=== PATIENT | female | born 1955 | race African-American/Black ===

== ENCOUNTER 2022-01-13 09:27 | Outpatient (CLI) | payer OTHER, SELFPAY ==
--- NOTE | ~2022-01-13 | DEXA_ITS ---
Bone Density Report Name: YURI SMILEY Age: 66 Sex: Female Ethnicity: Black Date of : 1955 Indication: postmenopausal; screening for osteoporosis; height loss; Referring Provider: JOCELYNEEULALIO Study: Bone densitometry was performed. Exam Date: January 13, 2022 Accession number: [id number] Bone Density: Region BMD T-score Z-score Classification AP Spine (L1, L2, L3) 1.094 0.7 1.6 Normal Femoral Neck (Left) 0.831 -0.2 0.4 Normal Total Hip (Left) 1.062 1.0 1.1 Normal Femoral Neck (Right) 0.845 0.0 0.5 Normal Total Hip (Right) 1.021 0.6 0.9 Normal Total Hip Mean 1.042 0.8 1.0 Normal World Health Organization criteria for BMD impression classify patients as: Normal (T-score at or above -1.0), Osteopenia (T-score between -1.0 and -2.5), or Osteoporosis (T-score at or below -2.5). 10-year Fracture Risk: FRAX not reported because: All T-scores for Spine Total, Hip Total, Femoral Neck at or above -1.0 Clinical Information Provided by Patient: Patient maximum height was 61.75 Menopause Age: 53 No regular weight bearing exercise Drinks caffeinated beverages Onset of menses at age 13 Number of children 1 Impression: The patient has normal bone mass. Discussion: BONE DENSITY IS ABOVE THE MINIMUM DESIRABLE LEVEL AT ALL SKELETAL SITES TESTED. This patient?s bone mineral density is above the minimum desirable level (T-score -1.0 or better) at all sites measured. The patient should follow a healthful lifestyle (good nutrition with adequate calcium and vitamin D, and appropriate weight-bearing exercise). Follow-Up: Consider repeating this study in 5 years or sooner if there is some new clinical indication. Reported by: GABRIELA on 01/13/2022 10:09:00 AM. Reviewed, dictated and finalized at location AAlexey PINEDA
== END 2022-01-13 09:28 ==
LOC: MICIMG 09:30
PROVIDERS: PCP Family Medicine; Visit Provider Family Medicine
DX: Z78.0 Asymptomatic menopausal state (principal)
CPT/HCPCS: 77080

== ENCOUNTER → 2022-03-13 10:32 | Outpatient (CLI) | payer OTHER, SELFPAY ==
--- NOTE | ~2022-03-13 | MM_ITS ---
EXAMINATION: MM screening harvey BI w kofi HISTORY: Screening TECHNIQUE: Craniocaudal and mediolateral oblique 3-D tomosynthesis images were obtained and synthetic 2-D images were generated. CAD analysis was submitted and interpreted. COMPARISON: 11/18/2018 BREAST PARENCHYMAL COMPOSITION: There are scattered areas of fibroglandular density. FINDINGS: There is no evidence of suspicious mass, calcification, or architectural distortion to sugg est malignancy in either breast. There has been no suspicious interval change. IMPRESSION: 1. No mammographic evidence of malignancy. 2. Recommend routine screening mammography in one year. BI-RADS Category 1: Negative Reviewed, dictated and finalized at location A. O CONSULTANT
== END ==
PROVIDERS: PCP Family Medicine; Visit Provider Family Medicine
DX: Z12.31 Encounter for screening mammogram for malignant neoplasm of breast (principal)
CPT/HCPCS: 77063; 77067

== ENCOUNTER 2022-03-30 07:36 | Emergency (ER) | payer OTHER, SELFPAY ==
--- NOTE | ~2022-03-30 | CT_ITS ---
Non-contrast Head CT History: Leg weakness Technique: Axial non-contrast imaging of the brain was performed. Dose reduction technique was used on this scan by utilizing automated exposure control and iterative reconstruction technique. The dose -length product (DLP) was 605.33 mGy-cm. Findings: There is an 8 mm ovoid hyperdensity at the anterior right bruno (axial image 17). The ventri cles and subarachnoid spaces are normal in size. The calvarium appears normal. The visualized paran edinson sinuses and mastoid air cells are clear. Impression: 8 mm ovoid hyperdensity at the anterior right bruno. This could reflect focal hemorrhage/hemorrhagic i nfarct, or possibly aneurysm adjacent to the bruno. Pre and postcontrast MRI recommended for further e valuation. Findings reported to Dr. Angel at the time of this reading. Reviewed, dictated and finalized at [facility]. IAC CATH LAB MANAGER Impression: 8 mm ovoid hyperdensity at the anterior right bruno. This could reflect focal he morrhage/hemorrhagic infarct, or possibly aneurysm adjacent to the bruno. Pre an d postcontrast MRI recommended for further evaluation. Findings reported to Dr. Angel at the time of this reading.
--- NOTE | ~2022-03-30 | XR_ITS ---
EXAMINATION: XR chest 2V DATE: 03/30/2022 07:58 INDICATION: Left-sided weakness TECHNIQUE: AP and lateral views of the chest are obtained. COMPARISON: 06/01/2010 FINDINGS: The lungs are free of acute opacities. No pleural effusion or pneumothorax. The cardiomedia stinal silhouette is normal. There is moderate thoracic spondylosis. IMPRESSION: 1. No acute cardiopulmonary abnormality. Reviewed, dictated and finalized at location A. SHOVEL OPERATOR
--- NOTE | 2022-03-30 07:43 | ECG_ITS ---
Measurements Intervals [place] Rate: 71 P: 53 VA: 151 QRS: -10 QRSD: 82 T: 21 QT: 346 QTc: 376 Interpretive Statements SINUS RHYTHM POOR R WAVE PROGRESSION, ANTERIOR LEADS BORDERLINE T WAVE ABNORMALITY- ANTERIOR LEADS BASELINE ARTIFACT- I, II, III, AVR, AVL, AVF BORDERLINE ECG NO PREVIOUS ECG AVAILABLE FOR COMPARISON Electronically Signed On 03-30-2022 12:39:20 FEATHER TRIMMER by Cody Stroud D.O.
[2022-03-30 07:45] VITALS: BP 159/80; PULSE 73; RESP 16; TEMP 36.4; O2SAT 98
--- NOTE | 2022-03-30 08:02 | ED.WEAKNESS ---
HPI - Weakness General Chief complaint: Weakness Stated complaint: weakness Time Seen by Provider: 03/30/22 08:01 Source: patient, EMS and RN notes reviewed Mode of arrival: EMS Limitations: no limitations History of Present Illness HPI Narrative: 66 years old -[place] female lives alone came by ambulance from home complaining of nausea, dizziness and weakness of the left upper and lower extremity, mainly lower extremity. Noticed at 6 PM last night. She denies any fever, chills, numbness, tingling, slurred speech, vision change or similar symptoms. Patient did not take her medication this morning, did not eat her breakfast, does not take antiplatelet or anticoagulant medication. History of diabetes, hypertension, hyperlipidemia, does not smoke or drink or uses drugs. Patient is full code Related Data Allergies Allergy/AdvReac Type Severity Reaction Status Date / Time No Known Allergies Allergy Mild Verified 10/24/09 13:14 Review of Systems Review of Systems: All systems reviewed & are unremarkable except as noted in HPI and below Exam Narrative: General appearance: Well-developed, well-nourished Skin: Normal color Head: Normocephalic, nontraumatic Eyes: Clear conjunctiva ENT: Oropharynx normal, ears normal, nose normal Neck: Supple, nontender Chest and respiratory: Airway patent, no respiratory distress, no accessory muscle use Heart: Regular rate/rhythm Abdomen: Soft, nontender, no organomegaly, quiet bowel sounds Vascular: Normal peripheral pulses, normal capillary refill. Musculoskeletal: Decreased range of motion of the left upper extremity and left lower extremity because of weakness Neurologic: Alert and oriented ?3, weakness left upper and left lower extremity Course Course Emergency Course: Acute CVA is my concern Consultations Consultation #1: Dr. Bradley, stroke team, [facility] Date: 03/30/22 Time: 09:04 Consultation #2: Dr. Ortega, ED, [facility] Date: 03/30/22 Time: 09:05 Vital Signs Vital signs: Vital Signs Temperature 36.4 C 03/30/22 07:45 Pulse Rate 73 03/30/22 07:45 Respiratory Rate 16 03/30/22 07:45 Blood Pressure 159/80 H 03/30/22 07:45 Pulse Oximetry 98 03/30/22 07:45 Temperature 36.4 C 03/30/22 07:45 Pulse Rate 78 01/05/23 08:19 Respiratory Rate 16 03/30/22 07:45 Blood Pressure 159/80 H 03/30/22 07:45 Pulse Oximetry 98 03/30/22 07:45 MDM - Weakness Differential Diagnosis Differential diagnosis: Likely hypoglycemia, hypothyroidism, dehydration and other (CVA) Lab Data 03/30/22 08:18 03/30/22 08:18 Labs: Lab Results 03/30/22 03/30/22 03/30/22 Range/Units 08:15 08:18 08:18 WBC 5.6 (4.5-10.0) K/mm3 RBC 5.17 (4.2-5.4) M/mm3 Hgb 14.0 (12.0-15.0) g/dL Hct 43.2 (37.0-47.0) % MCV 83.6 (80-100) fl MCH 27.1 (26-34) pg MCHC 32.4 (32-36) g/dl RDW 14.9 H (11.5-14.5) % Plt Count 218 (150-375) k/mm3 MPV 11.4 H (7.4-10.4) fl Immature Gran % (Auto) 0.4 (0-0.5) % Neut % (Auto) 54.1 (45.5-73.1) % Lymph % (Auto) 34.4 (18.3-44.2) % [place] % (Auto) 9.8 H (2.6-8.5) % Eos % (Auto) 0.9 (0-4.4) % Baso % (Auto) 0.4 (0.2-1.2) % Lymph # (Auto) 1.94 (0.9-3.2) K/mm3 [place] # (Auto) 0.6 (0.1-0.6) K/mm3 Eos # (Auto) 0.1 (0-0.3) K/mm3 Baso # (Auto) 0.0 (0.0-0.1) K/mm3 Abs Immat Gran (auto) 0.02 (0.00-0.031) K/mm3 Absolute Neuts (auto) 3.1 (1.3-6.7) K/mm3 Absolute Nucleated RBC 0.0 (0.0-0.012) K/mm3 Nucleated RBC % 0.0 (0.0-0.2) % PT (11.1-14.7) Seconds INR APTT (22.3-36.8) SECONDS Sodium Pending Po
[2022-03-30 08:19] VITALS: PULSE 78
[2022-03-30 08:23] LABS: Basophils Percent Auto 0.4 % (0.2-1.2); Eosinophils Absolute Auto 0.1 K/mm3 (0-0.3); Eosinophils Percent Auto 0.9 % (0-4.4); Hematocrit 43.2 % (37.0-47.0); Immature Granulocyte Absolute 0.02 K/mm3 (0.00-0.031); Immature Granulocyte Percent A 0.4 % (0-0.5); Lymphocytes Absolute Auto 1.94 K/mm3 (0.9-3.2); Lymphocytes Percent Auto 34.4 % (18.3-44.2); Mean Corpuscular HGB Conc 32.4 g/dl (32-36); Mean Corpuscular Hemoglobin 27.1 pg (26-34); Mean Corpuscular Volume 83.6 fl (80-100); Mean Platelet Volume 11.4 fl (7.4-10.4); Monocytes Absolute Auto 0.6 K/mm3 (0.1-0.6); Monocytes Percent Auto 9.8 % (2.6-8.5); Neutrophils Absolute Auto 3.1 K/mm3 (1.3-6.7); Neutrophils Percent Auto 54.1 % (45.5-73.1); Platelet Count Result 218 k/mm3 (150-375); Red Blood Count 5.17 M/mm3 (4.2-5.4); Red Cell Distribution Width 14.9 % (11.5-14.5); White Blood Count 5.6 K/mm3 (4.5-10.0)
[2022-03-30 08:23] LABS: Add Urine Microscopic? YES; Appearance Urine Clear (Clear); Bilirubin Urine Negative (Negative); Blood Urine Trace-Intact (Negative); Color Urine Yellow (Yellow); Glucose Urine UA 1+ mg/dL (Negative); Ketones Urine Negative (Negative); Leukocyte Esterase Ur Negative LEU/UL (Negative); Nitrate Urine Negative (Negative); Protein Urine 1+ mg/dL (Negative); Specific Grav Ur 1.015 (1.001-1.035); Urobilinogen Urine 0.2 mg/dL (<2.0)
[2022-03-30 08:35] VITALS: BP 174/99; PULSE 74; RESP 16; O2SAT 98
[2022-03-30 08:37] LABS: Prothrombin Time 12.7 Seconds (11.1-14.7)
[2022-03-30 08:38] LABS: Partial Thromboplastin Time 34.6 SECONDS (22.3-36.8)
[2022-03-30 08:40] LABS: Bacteria Urine Trace /hpf; Mucus Urine Rare /lpf; RBC Urine 0-2 /hpf (0-2); Squamous Epithelial Cell Urine Occasional /hpf (Few); WBC Urine 0-3 /hpf
[2022-03-30 09:02] VITALS: BP 168/117; PULSE 78; RESP 16; O2SAT 98
--- NOTE | 2022-03-30 09:02 | PC.NURSE ---
Richard EMs accepted transfer to [facility] ER Lights and Bernice ERAZO 20min Trip # [phone]
[2022-03-30 09:08] VITALS: BP 168/119; PULSE 78
[2022-03-30] MEDS: niCARdipine 20 MG/200 ML 20 MG/200 ML BAG 50 MG IV CONT (09:08)
[2022-03-30 09:14] LABS: Alanine Aminotransferase 39 U/L (6-35); Albumin Level 4.1 g/dL (3.5-5.1); Alkaline Phosphatase 75 U/L (38-126); Anion Gap 8 mmol/L (8-16); Aspartate Amino Transferase 33 U/L (14-36); Bilirubin,Total 1.1 mg/dL (0.2-1.3); Blood Urea Nitrogen 11 mg/dL (7-17); Calcium 10.1 mg/dL (8.4-10.2); Carbon Dioxide 26 mmol/L (22-30); Chloride 106 mmol/L (98-107); Estimated CRCL calculation 48 ml/min; Estimated Glomerular Filt Rate > 60; Glucose 207 mg/dL (65-110); Potassium 3.8 mmol/L (3.4-5.0); Sodium 140 mmol/L (137-145)
[2022-03-30 09:24] LABS: Glucose Point of Care 151 mg/dl (65-105)
[2022-03-30 09:29] LABS: Troponin I < 0.012 ng/mL (0.000-0.034)
== END 2022-03-30 09:15 | disposition short-term general hospital (02) ==
PROVIDERS: Emergency Provider Emergency Medicine; PCP Family Medicine
DX: I62.9 Nontraumatic intracranial hemorrhage, unspecified (principal); E11.9 Type 2 diabetes mellitus without complications; I10 Essential (primary) hypertension; E78.5 Hyperlipidemia, unspecified
CPT/HCPCS: 36415; 70450; 71046; 80053; 81001; 82948; 84484; 85025; 85610; 85730; 93005; 96374; 99291